=== PATIENT | female | born 1955 | race Caucasian/White ===

== ENCOUNTER 2022-03-11 10:14 | Outpatient (CLI) | payer MEDICARE, BC | END 2022-03-11 10:15 | disposition home or self-care (01) | LOC: CSHMAMMO 10:14 | PROVIDERS: ATTEND Family Medicine | DX: Z12.31 Encounter for screening mammogram for malignant neoplasm of breast (principal); Z13.820 Encounter for screening for osteoporosis; E28.39 Other primary ovarian failure; M81.0 Age-related osteoporosis without current pathological fracture; Z78.0 Asymptomatic menopausal state | CPT/HCPCS: 77063; 77067; 77080 ==

== ENCOUNTER 2023-04-07 10:45 | Outpatient (CLI) | payer MEDICARE, BC | END 2023-04-07 10:46 | disposition home or self-care (01) | LOC: CSHCT 10:45 | PROVIDERS: ATTEND Family Medicine | DX: Z12.2 Encounter for screening for malignant neoplasm of respiratory organs (principal); F17.210 Nicotine dependence, cigarettes, uncomplicated | CPT/HCPCS: 71271 ==

== ENCOUNTER 2023-05-28 08:31 | Outpatient (CLI) | payer MEDICARE, BC | END 2023-05-28 08:32 | disposition home or self-care (01) | LOC: CSHWCC 08:31 | PROVIDERS: ATTEND Physician Assistant | DX: S31.603D Unspecified open wound of abdominal wall, right lower quadrant with penetration into peritoneal cavity, subsequent encounter (principal); T81.89XD Other complications of procedures, not elsewhere classified, subsequent encounter; K94.00 Colostomy complication, unspecified | CPT/HCPCS: 97602; 97605 ==

== ENCOUNTER 2023-06-02 09:18 | Outpatient (CLI) | payer MEDICARE, BC | END 2023-06-02 09:19 | disposition home or self-care (01) | LOC: CSHWCC 09:18 | PROVIDERS: ATTEND Preventive Medicine Undersea and Hyperbaric Medicine | DX: T81.89XD Other complications of procedures, not elsewhere classified, subsequent encounter (principal); S31.603D Unspecified open wound of abdominal wall, right lower quadrant with penetration into peritoneal cavity, subsequent encounter; K94.00 Colostomy complication, unspecified | CPT/HCPCS: 11042; 97605; G0463; 99213 ==

== ENCOUNTER 2023-06-21 11:17 | Outpatient (CLI) | payer MEDICARE, BC | END 2023-06-21 11:18 | disposition home or self-care (01) | LOC: CSHWCC 11:17 | PROVIDERS: ATTEND Physician Assistant | DX: L98.498 Non-pressure chronic ulcer of skin of other sites with other specified severity (principal) | CPT/HCPCS: 97602 ==

== ENCOUNTER 2023-06-28 10:50 | Outpatient (CLI) | payer MEDICARE, BC | END 2023-06-28 10:51 | disposition home or self-care (01) | LOC: CSHWCC 10:50 | PROVIDERS: ATTEND Physician Assistant | DX: L98.498 Non-pressure chronic ulcer of skin of other sites with other specified severity (principal) | CPT/HCPCS: 99211; G0463 ==

== ENCOUNTER 2023-07-14 13:11 | Outpatient (CLI) | payer MEDICARE, BC | END 2023-07-14 13:12 | disposition home or self-care (01) | LOC: CSHWCC 13:11 | PROVIDERS: ATTEND Preventive Medicine Undersea and Hyperbaric Medicine | DX: L98.498 Non-pressure chronic ulcer of skin of other sites with other specified severity (principal) | CPT/HCPCS: 99213; G0463 ==

== ENCOUNTER 2023-07-16 10:27 | Outpatient (CLI) | payer MEDICARE, BC ==
[2023-07-16] MEDS ORDERED: Iopamidol 300 61% 100 ML VIAL FS ONE (12:25)
== END 2023-07-16 10:28 | disposition home or self-care (01) ==
LOC: CSHCT 10:27
PROVIDERS: ATTEND Family Medicine
DX: K57.80 Diverticulitis of intestine, part unspecified, with perforation and abscess without bleeding (principal); N32.9 Bladder disorder, unspecified
CPT/HCPCS: 74177; Q9967

== ENCOUNTER 2023-08-02 10:15 | Outpatient (CLI) | payer MEDICARE, BC | END 2023-08-02 10:16 | disposition home or self-care (01) | LOC: CSHWCC 10:15 | PROVIDERS: ATTEND Physician Assistant | DX: L98.498 Non-pressure chronic ulcer of skin of other sites with other specified severity (principal) | CPT/HCPCS: 99213; G0463 ==

== ENCOUNTER 2023-08-02 10:46 | Outpatient (CLI) | payer MEDICARE, BC ==
[~2023-08-02 10:46] MED LIST: Iopamidol 370 76% 100 ML VIAL ONE
== END 2023-08-02 10:47 | disposition home or self-care (01) ==
LOC: CSHCT 10:46
PROVIDERS: ATTEND Family Medicine
DX: N32.9 Bladder disorder, unspecified (principal); R18.8 Other ascites; Z93.3 Colostomy status; R93.89 Abnormal findings on diagnostic imaging of other specified body structures
CPT/HCPCS: 74178; 82565

== ENCOUNTER 2023-09-21 10:38 | Outpatient (CLI) | payer MEDICARE ==
[~2023-09-21 10:38] MED LIST changes: +Iopamidol 300 61% 100 ML VIAL FS ONE; -Iopamidol 370 76% 100 ML VIAL ONE
== END 2023-09-21 10:39 | disposition home or self-care (01) ==
LOC: CSHCT 10:38
PROVIDERS: ATTEND Urology
DX: N39.0 Urinary tract infection, site not specified (principal); Q63.1 Lobulated, fused and horseshoe kidney; Z96.0 Presence of urogenital implants; Z93.3 Colostomy status
CPT/HCPCS: 74178; 82565

== ENCOUNTER 2025-06-27 10:46 | Outpatient (CLI) | payer MEDICARE | END 2025-06-27 10:47 | disposition home or self-care (01) | LOC: CSHCT 10:46 | PROVIDERS: ATTEND Student in an Organized Health Care Education/Training Program | DX: Z12.2 Encounter for screening for malignant neoplasm of respiratory organs (principal); Z87.891 Personal history of nicotine dependence | CPT/HCPCS: 71271 ==

== ENCOUNTER 2025-06-27 11:20 | Outpatient (CLI) | payer MEDICARE | END 2025-06-27 11:21 | disposition home or self-care (01) | LOC: CSHMAMMO 11:20 | PROVIDERS: ATTEND Student in an Organized Health Care Education/Training Program | DX: Z12.31 Encounter for screening mammogram for malignant neoplasm of breast (principal) | CPT/HCPCS: 77063; 77067 ==